=== PATIENT | female | born 1955 | race Two or more races ===

== ENCOUNTER 2025-01-12 19:00 | Emergency (ER) | payer OTHER ==
[~2025-01-12] VITALS: Ht 162.6 cm; Wt 80.9 kg
--- NOTE | 2025-01-12 19:27 | ED.PDOC ---
Musculoskeletal HPI Comments 69 year old female brought in by daughter presents to the ED with chief complaint of fall. Daughter reports that the patient had slipped on a dog today today, falling onto her left side, but managed to cover her head and did not hit it. Daughter relays that the patient had also been noted to lose consciousness after the fall and the patient does not remember doing so. Patient states she has felt nauseous and vomited a few times after waking up along with now experiencing right thigh swelling and pain. Daughter notes EMS came out to the house and evaluated her, determining she was normal, but advised to bring the patient to the ED if any symptoms worsen. Patient denies any head injury, back pain, chest pain, numbness, weakness, tingling, or abdominal pain. Time Seen by MD: 19:23 Reviewed Notes: Nurses Notes, Medications, Allergies Allergies: Coded Allergies: NO KNOWN ALLERGIES (Unverified , 01/12/25) Information Source: Patient, Relative Mode of Arrival: Wheelchair Location: Right Extremity Location: Thigh Timing: Hours Prehospital treatment: None Severity: Moderate Able to Move Extremity: Yes Bear Weight: Fully Pain: Moderate Mechanism: Hyperextension Circumstances: Fall Onset of Symptoms: After Trauma Symptoms: Swelling, Pain DVT Risk Factors: NONE Last Tetanus: UTD Associated signs and symptoms: Thigh pain Past Medical History PAST MEDICAL HISTORY: Denies Surgical History: Denies all surgeries [employer] History: No Pertinent [employer] History Family History Family History: Reviewed,noncontributory to illness Social History Smoker: Non-Smoker Alcohol: Denies ETOH Use Drugs: Denies Drug Use Lives In: Home Constitutional: denies: chills, diaphoresis, fatigue, fever, malaise, sweats, weakness, others EENTM: denies: blurred vision, double vision, ear bleeding, ear discharge, ear drainage, ear pain, ear ringing, eye pain, eye redness, hearing loss, mouth pain, mouth swelling, nasal discharge, nose bleeding, nose congestion, nose pain, photophobia, tearing, throat pain, throat swelling, voice changes, others Respiratory: denies: cough, hemoptysis, orthopnea, SOB at rest, shortness of breath, SOB with excertion, stridor, wheezing, others Cardiovascular: denies: chest pain, dizzy spells, diaphoresis, Dyspnea on exertion, edema, irregular heart beat, left arm pain, lightheadedness, palpitations, PND, syncope, others Gastrointestinal: reports: nausea, vomiting; denies: abdomen distended, abdominal pain, blood streaked bowels, constipated, diarrhea, dysphagia, difficulty swallowing, hematemesis, melena, poor appetite, poor fluid intake, rectal bleeding, rectal pain, others Genitourinary: denies: abnormal vagina bleeding, burning, dyspareunia, dysuria, flank pain, frequency, hematuria, incontinence, pain, , vagina discharge, urgency, others Neurological: reports: dizziness; denies: fainting, headache, left sided numbness, left sided weakness, numbness, paresthesia, pre-existing deficit, right sided numbness, right sided weakness, seizure, speech problems, tingling, tremors, weakness, others Musculoskeletal: reports: others (Rt thigh pain); denies: back pain, gout, joint pain, joint swelling, muscle pain, muscle stiffness, neck pain Integumetry: denies: bruises, change in color, change in hair/nails, dryness, laceration, lesions, lumps, rash, wounds, others Allergic/Immunocompromised: denies: Difficulty Healing, Frequent Infections, Hives, Itching, others Hematologic/Lymphatic: denies: anemia, blood clots, easy bleeding, easy bruising, swollen glands, others Endocrine: denies: excessive hunger, excessive sweating, excessive thirst, excessive urination, flushing, intolerance to cold, intolerance to heat, unexplained weight gain, unexplained weight loss, others Psychiatric: denies: anxiety, bipolar disorder, depression, hopeless, panic dis order, schizophrenia, sleepless, suicidal, others All Other Systems: Reviewed and Negative Physical Exam Exam Comments 69-year-old female presented to the emergency department complaining of severe right leg pain Patient fell from the her walker down to the floor with her arm protecting her head and slammed the floor that she has not complained of any headache but she is nauseous she is dizzy and lightheaded General Appearance: Mild Distress, Obese HEENT: Normal ENT Inspection, PERRL/EOMI, Pharynx Normal, TMs Normal Neck: Full Range of Motion, Non-Tender, Normal, Normal Inspection Respiratory: Chest Non-Tender, Lungs Clear, No Accessory Muscle Use, No Respiratory Distress, Normal Breath Sounds Cardiovascular: No Edema, No JVD, No Murmur, No Gallop, Normal Peripheral Pulses, Regular Rate/Rhythm Breast Exam: Deferred Gastrointestinal: No Organomegaly, Non Tender, No Pulsatile Mass, Normal Bowel Sounds, Soft Genitalia: Deferred Pelvic: Deferred Rectal: Deferred Extremities: No calf tenderness, Normal capillary refill, Normal inspection, Normal range of motion, Non-tender, No pedal edema Musculoskeletal : Apperance: Normal Neurologic: Alert, maintenance millwright II-XII nml as Tested, Depressed Affect, Dizziness, No Motor Deficits, Normal Affect, Normal Mood, No Sensory Deficits Cerebellar Function: Normal Reflexes: NOT DONE Skin: Dry, Normal Color, Warm Peripheral Pulses: 1+ carotid (R), 1+ carotid (L) Lymphatic: No Adenopathy Was a procedure done? Was a procedure done?: No Differential Diagnosis EXT Differential Diagnosis: Sprain, Contusion, Strain Other Differential Diagnosis Vertigo barotrauma head trauma muscle strain X-Ray, Labs, Meds, VS Vital Signs Date Time Temp Pulse Resp B/P (MAP) Pulse Ox O2 Delivery O2 Flow Rate FiO2 01/12/25 20:32 97.7 75 17 124/63 (83) 96 97.7 01/12/25 20:05 65 17 96 Room Air* 0 21 01/12/25 19:41 71 01/12/25 19:31 97.4 68 16 107/69 (82) 96 97.4 Lab Test 01/12/25 19:36 01/12/25 19:34 Range/Units White Blood Count 11.6 H 4.4-10.8 10^3/uL Red Blood Count 4.63 4.0-5.20 10^6/uL Hemoglobin 11.1 L 12.2-16.2 g/dL Hematocrit 34.6 L 36.0-46.0 % Mean Corpuscular Volume 74.8 L 80.0-100.0 fL Mean Corpuscular Hemoglobin 23.9 L 28.0-32.0 pg Mean Corpuscular Hemoglobin Concent 32.0 32.0-36.0 g/dL Red Cell Distribution Width 16.2 H 11.8-14.3 % Platelet Count 399 140-450 10^3/uL Mean Platelet Volume 7.6 6.9-10.8 fL Neutrophils (%) (Auto) 55.9 37.0-80.0 % Lymphocytes (%) (Auto) 32.8 10.0-50.0 % Monocytes (%) (Auto) 7.8 0.0-12.0 % Eosinophils (%) (Auto) 2.4 0.0-7.0 % Basophils (%) (Auto) 1.1 0.0-2.0 % Neutrophils # (Auto) 6.5 1.6-8.6 10 ^3/uL Lymphocytes # (Auto) 3.8 0.4-5.4 10 ^3/uL Monocytes # (Auto) 0.9 0-1.3 10 ^3/uL Eosinophils # (Auto) 0.3 0-0.8 10 ^3/uL Basophils # (Auto) 0.1 0-0.2 10 ^3/uL Nucleated Red Blood Cells 0.0 % Sodium Level 141 136-145 mmol/L Potassium Level 3.8 3.5-5.1 mmol/L Chloride Level 106 98-107 mmol/L Carbon Dioxide Level 26 20-31 mmol/L Anion Gap 9 5-15 Blood Urea Nitrogen 22 9-23 mg/dL Creatinine 1.05 H 0.550-1.02 mg/dL Glomerular Filtration Rate Calc 57 >90 mL/min BUN/Creatinine Ratio 21.0 H 10.0-20.0 Serum Glucose 162 H 74-106 mg/dL Calcium Level 9.7 8.7-10.4 mg/dL Magnesium Level 2.1 1.6-2.6 mg/dL POC Glucose 135 H 70-106 mg/dl Current Medications Medications (Trade) Dose Ordered Sig/Garret Route Start Time Stop Time Status Last Admin Sodium Chloride 1,000 ml @ 150 mls/hr Q6H40M ONCE IV 01/12/25 19:30 01/13/25 02:09 01/12/25 20:22 Ondansetron HCl (Zofran) 4 mg ONCE ONCE IV 01/12/25 19:30 01/12/25 19:31 DC 01/12/25 20:23 X-Ray, Labs, Meds, VS Comment Course in the emergency department eventful Patient had a fall at home from her wheelchair fell on her left side and hit her head protected by arm she is having headache nausea and vomiting and and also she is having severe pain to the posterior aspect and lateral aspect of the femur The EKG shows normal sinus rhythm at 71 with a PACs and neck ventricular hypertrophy her CT of the head is negative CBC 00117 with 55.9% neutrophils 11 and 35 H&H with microcytosis BNP GFR at 57 blood sugar of 162 magnesium 2.1 Right femur x-ray negative Patient will be discharged home to bedrest for the next day and follow up with her PCP Time of 1ST Reevaluation: 20:23 Reevaluation 1ST: Unchanged Time of 2ND Reevaluation: 21:08 Reevaluation 2ND: Improved Consultation: PCP Patient Education/Counseling: Diagnosis, Treatment, Prognosis Family Education/Counseling: Diagnosis, Treatment, Prognosis, Other (Family at bedside) Departure 1 Departure Time of Disposition: 21:09 Impression: Primary Impression: Fall at home Qualified Codes: W19.XXXA - Unspecified fall, initial encounter; Y92.009 - Unspecified place in unspecified non-institutional (private) residence as the place of occurrence of the external cause Additional Impressions: Mild concussion Qualified Codes: S06.0X0A - Concussion without loss of consciousness, initial encounter Nausea and vomiting Qualified Codes: R11.2 - Nausea with vomiting, unspecified Strain of right hip and thigh Qualified Codes: S76.011A - Strain of muscle, fascia and tendon of right hip, initial encounter; S76.911A - Strain of unspecified muscles, fascia and tendons at thigh level, right thigh, initial encounter Diabetes mellitus with nephropathy Anemia in chronic kidney disease Disposition: 01 HOME / SELF CARE / HOMELESS Condition: Fair Additional Instructions: [facility] bedrest and follow up with your PCP e-Prescriptions Cyclobenzaprine Hcl (Cyclobenzaprine Hcl) 10 Mg Tab 10 MG PO TID for 10 Days, #30 TAB Prov: RENETTA MITTAL MD 01/12/25 Acetaminophen (Acetaminophen Extra Stren) 500 Mg Tab 500 MG PO TID for 10 Days, #30 TAB Prov: RENETTA MITTAL MD 01/12/25 Ondansetron Odt 4MG Tab (ZOFRAN PO) 4 Mg Tb 4 MG PO TID for 10 Days, #30 TAB ODT TAB-DISSOLVE IN MOUTH, THEN SWALLOW Prov: RENETTA MITTAL MD 01/12/25 Discharged With: Self, Relative Critical Care Note Critical Care Time?: No Stability Stability form required: No Heart Score Heart Score: Heart Score Response (Comments) Value History N/A 0 EKG N/A 0 Age >65 2 Risk Factors 1 or 2 risk factors 1 Troponin N/A 0 Total 3 I personally scribed for RENETTA MITTAL MD ([email or web address]) on 01/12/25 at 19:27. Electronically submitted by Dajuan Garcia ([email or web address]). RENETTA MITTAL MD January 12, 2025 19:27
[2025-01-12 19:52] LABS: Basophils # (auto) 0.1 10 ^3/uL (0-0.2); Basophils % (auto) 1.1 % (0.0-2.0); Eosinophils # (auto) 0.3 10 ^3/uL (0-0.8); Eosinophils % (auto) 2.4 % (0.0-7.0); Hematocrit 34.6 % (36.0-46.0); Hemoglobin 11.1 g/dL (12.2-16.2); Lymphocytes # (auto) 3.8 10 ^3/uL (0.4-5.4); Lymphocytes % (auto) 32.8 % (10.0-50.0); Mean Corpuscular Hemoglobin 23.9 pg (28.0-32.0); Mean Corpuscular Volume 74.8 fL (80.0-100.0); Monocytes # (auto) 0.9 10 ^3/uL (0-1.3); Monocytes % (auto) 7.8 % (0.0-12.0); Neutrophils # (auto) 6.5 10 ^3/uL (1.6-8.6); Neutrophils % (auto) 55.9 % (37.0-80.0); Platelet Count (auto) 399 10^3/uL (140-450); Red Blood Cells 4.63 10^6/uL (4.0-5.20); Red Cell Distribution Width 16.2 % (11.8-14.3); White Blood Cell 11.6 10^3/uL (4.4-10.8)
[2025-01-12] MEDS: SODIUM CHLORIDE 0.9% 1,000 ML IV ONE (19:57)
[2025-01-12 19:59] LABS: Chloride 106 mmol/L (98-107); Potassium 3.8 mmol/L (3.5-5.1); Sodium 141 mmol/L (136-145)
[2025-01-12 20:00] LABS: Anion Gap 9 (5-15); Calcium 9.7 mg/dL (8.7-10.4); Carbon Dioxide 26 mmol/L (20-31)
[2025-01-12 20:05] VITALS: PULSE 65; RESP 17; O2SAT 96
[2025-01-12 20:05] LABS: Blood Urea Nitrogen 22 mg/dL (9-23); Glucose 162 mg/dL (74-106)
[2025-01-12 20:06] LABS: Magnesium 2.1 mg/dL (1.6-2.6)
--- NOTE | 2025-01-12 20:17 | DVH ---
CT HEAD WITHOUT CONTRAST INDICATION: FAll syncope vomiting COMPARISON: None TECHNIQUE: CT of the head without intravenous contrast. RADIATION DOSE: CTDIvol: mGy, DLP: mGy*cm FINDINGS: There is no evidence of intracranial hemorrhage, large infarct, extra-axial collection, mass effect, midline shift, herniation or hydrocephalus. Mild chronic white matter microvascular ischemic changes . The ventricles, sulci and cisterns are normal. The charles-white differentiation is intact. Visualized paranasal sinuses and mastoid air cells are clear. Soft tissues and osseous structures are unremarka ble. IMPRESSION: No hemorrhage or other acute intracranial abnormality. Chronic white matter microvascular ischemic ch anges.
--- NOTE | 2025-01-12 20:18 | DVH ---
CLINICAL INDICATION: FALL TECHNIQUE: XY R FEMUR XRAY Comparison: None FINDINGS / IMPRESSION: No evidence of acute fracture or dislocation.
[2025-01-12] MEDS: ONDANSETRON HCL 4 MG/2 ML VIAL IV ONE (20:23)
[2025-01-12] MEDS ORDERED: ZOFR4T PO (21:16)
[2025-01-12] MEDS ORDERED: ACET-6 PO (21:16)
[2025-01-12] MEDS ORDERED: CYCL-839 PO (21:16)
[2025-01-12] MEDS: MECLIZINE HCL 25 MG TAB PO ONE (21:26)
[2025-01-12 22:00] VITALS: BP 147/113; PULSE 67; RESP 12; TEMP 98.3; O2SAT 95
--- NOTE | 2025-01-14 12:57 | ECG ---
[facility] Test Date: 2025-01-12 Test Time: 19:41:19 Pat Name: SAW JOHNSON Department: ER Room: Gender: F Bindery Supervisor: TARI : [id number] Requested By: RENETTA MITTAL Order Number: [id number] Reading MD: Measurements Intervals [place] Rate: 71 P: 30 WA: 175 QRS: -7 QRSD: 91 T: -4 QT: 428 QTc: 466 Interpretive Statements Sinus rhythm Atrial premature complex Consider left ventricular hypertrophy Borderline T abnormalities, inferior leads Please click the below link to view image of tracing.
== END 2025-01-12 23:00 | disposition home or self-care (01) ==
LOC: ER 19:00
DX: S06.0X0A Concussion without loss of consciousness, initial encounter (principal); S76.011A Strain of muscle, fascia and tendon of right hip, initial encounter; S76.911A Strain of unspecified muscles, fascia and tendons at thigh level, right thigh, initial encounter; E11.22 Type 2 diabetes mellitus with diabetic chronic kidney disease; R11.2 Nausea with vomiting, unspecified; D63.1 Anemia in chronic kidney disease; Z79.899 Other long term (current) drug therapy; W01.0XXA Fall on same level from slipping, tripping and stumbling without subsequent striking against object, initial encounter; Y93.89 Activity, other specified; Y92.009 Unspecified place in unspecified non-institutional (private) residence as the place of occurrence of the external cause; Y99.8 Other external cause status
CPT/HCPCS: 36415; 70450; 73552; 80048; 82947; 83735; 85025; 93005; 96361; 96374; 99285; J2405; J7030; J8597; 82962